=== PATIENT | female | born 1945 | race Caucasian/White ===

== ENCOUNTER 2016-12-09 17:37 | Emergency (ER) | payer MEDICARE ==
--- NOTE | 2016-12-09 18:56 | ED Physician Documentation ---
PD HPI FOCAL NEURO - Stated complaint Stated Complaint: NUMBNESS/TINGLING HAND/FEET - Chief complaint Chief Complaint: Neuro - History obtained from History obtained from: Patient - History of Present Illness Timing - onset: Other (For about 45 seconds at 4:45 PM today she developed left lip tingling, arm tingling in left and left leg tingling, all of which rapidly went away and were not associated with weakness or trouble with speech or headache.) Review of Systems Constitutional: denies: Fever, Chills Nose: denies: Rhinorrhea / runny nose, Congestion Throat: denies: Dental pain / toothache, Sore throat Cardiac: denies: Chest pain / pressure, Palpitations Respiratory: denies: Dyspnea PD PAST MEDICAL HISTORY - Present Medications Home Medications: Ambulatory Orders Medication Instructions Recorded Confirmed Atorvastatin Calcium 20 mg PO DAILY #60 tablet 12/09/16 - Allergies Allergies/Adverse Reactions: Allergies Allergy/AdvReac Type Severity Reaction Status Date / Time Penicillins Allergy Unknown Verified 12/09/16 17:47 typhoid vaccine Allergy Unknown Verified 12/09/16 17:47 PD ED PE NORMAL - Vitals Vital signs reviewed: Yes - General General: Alert and oriented X 3, No acute distress - HEENT HEENT: PERRL - Cardiac Cardiac: RRR, No murmur - Respiratory Respiratory: No respiratory distress, Clear bilaterally - Abdomen Abdomen: Non tender - Neuro Neuro: Alert and oriented X 3, Normal speech - Psych Psych: Normal mood, Normal affect NIHSS - Time Time: 18:45 - Level of Consciousness Level of consciousness: (0) Alert, Keenly responsive LOC Questions: (0) Answers both Q's correct LOC Commands: (0) Performs both correctly - Gaze Best Gaze: (0) Normal - Visual Visual: (0) No loss - Facial Palsy Facial Palsy: (0) Normal, symmetrical movement - Motor Arms (both separate) Motor Arm (right): (0) No drift Motor Arm (left): (0) No drift - Motor Legs (both separate) Motor Leg (right): (0) No drift Motor Leg (left): (0) No drift - Limb Ataxia Limb Ataxia: (0) Absent - Sensory Sensory: (0) Normal - Best Language Best Language: (0) No aphasia - Dysarthria Dysarthria: (0) Normal - Extinction and Inattention (formally neg Extinction and inattention: (0) No abnormality - Total Score/Results Total Score/Result: 0 Results - Vitals Vitals: Vital Signs - 24 hr 12/09/16 12/09/16 12/09/16 17:40 18:18 19:22 Temperature 36.4 C L 36.6 C Heart Rate 76 69 63 Respiratory 18 10 L 20 Rate Blood Pressure 185/84 H 159/87 H 175/72 H O2 Saturation 98 98 100 12/09/16 12/09/16 20:10 20:48 Temperature 36.3 C L Heart Rate 89 70 Respiratory 10 L 23 Rate Blood Pressure 151/70 H 157/68 H O2 Saturation 99 98 Oxygen O2 Source Room air - EKG (time done) 1901 Rate: Rate (enter#) (68) Rhythm: NSR [place]: Normal Intervals: Normal OR QRS: LVH Ischemia: Normal ST segments Computer interpretation: Agree with computer - Labs Labs: Laboratory Tests 12/09/16 12/09/16 19:12 19:12 WBC 12.1 H RBC 4.84 Hgb 14.4 Hct 43.1 MCV 89.0 MCH 29.7 MCHC 33.3 RDW 13.9 Plt Count 240 MPV 9.5 Neut # 8.4 H Lymph # 2.7 [place] # 0.7 Eos # 0.3 Baso # 0.1 Absolute Nucleated RBC 0.01 Nucleated RBCs 0.1 Sodium 137 Potassium 3.8 Chloride 102 Carbon Dioxide 26 Anion Gap 9.0 BUN 16 Creatinine 0.7 Estimated GFR (MDRD) 83 L Glucose 92 Calcium 9.2 Total Bilirubin 0.8 AST 21 ALT 21 Alkaline Phosphatase 62 Total Protein 7.9 Albumin 4.3 Globulin 3.6 Albumin/Globulin Ratio 1.2 Triglycerides 60 Cholesterol 226 H LDL Cholesterol, Calc 139 H VLDL Cholesterol 12 HDL Cholesterol 75 LDL/HDL Ratio 1.9 Cholesterol/HDL Ratio 3.0 Lipase 21 L - Rads (name of study) CT Head Radiology: EMP read contemporaneously (atrophy nad) carotid doppler Radiology: Prelim report reviewed (no sig stenosis) PD MEDICAL DECISION MAKING - ED course ED course: 71-year-old woman with TIA symptoms, normal exam now. Symptoms were very mild and fleeting, only 45 seconds she estimates. ABCD 2 score is 2 points. I recommended staying in the hospital which she refused. Workup was done and as shown, started on a statin and advised baby aspirin and primary care follow-up. Departure - Departure Disposition: 01 Home, Self Care Clinical Impression: Hypercholesterolemia TIA (transient ischemic attack) Qualifiers: Transient cerebral ischemia type: unspecified Qualified Code(s): G45.9 - Transient cerebral ischemic attack, unspecified Condition: Good Record reviewed to determine appropriate education?: Yes Instructions: ED Transient Ischemic Attack Follow-Up: [facility] [Provider Group] [facility] [Provider Group] [facility] [Provider Group] Prescriptions: Atorvastatin Calcium 20 mg PO DAILY #60 tablet Comments: It is imperative to follow-up with a primary care physician, several listed on this form. Return if worse or for recurrent symptoms. Take a baby aspirin every day, Your blood pressure was elevated today on check into the emergency department. This does not mean that you have hypertension, it is a common phenomenon to come to the emergency department and have elevated blood pressure. I recommend that she see her primary care physician within the week to have it rechecked when you are feeling better.
[2016-12-09 19:21] LABS: BASOPHILS # (AUTO) 0.1 10^3/uL (0.0-0.1); BASOPHILS % (AUTO) 0.6 %; EOSINOPHILS # (AUTO) 0.3 10^3/uL (0.0-0.7); EOSINOPHILS % (AUTO) 2.2 %; HCT - HEMATOCRIT 43.1 % (37.0-47.0); HGB - HEMOGLOBIN 14.4 g/dL (12.0-16.0); LYMPHOCYTES # (AUTO) 2.7 10^3/uL (1.5-3.5); LYMPHOCYTES % (AUTO) 22.4 %; MEAN CORPUSCULAR HEMOGLOBIN 29.7 pg (27.0-31.0); MEAN CORPUSCULAR HGB CONC 33.3 g/dL (32.0-36.0); MEAN PLATELET VOLUME 9.5 fL (7.9-10.8); MONOCYTES # (AUTO) 0.7 10^3/uL (0.0-1.0); MONOCYTES % (AUTO) 5.4 %; NEUTROPHILS # (AUTO) 8.4 10^3/uL (1.5-6.6); NEUTROPHILS % (AUTO) 69.4 %; NUCLEATED RED BLOOD CELLS AUTO 0.1 /100WBC; RED BLOOD COUNT 4.84 10^6/uL (4.20-5.40); RED CELL DISTRIBUTION WIDTH 13.9 % (12.0-15.0); UNCORRECTED WHITE BLOOD COUNT 12.1 x10^3/uL; WHITE BLOOD COUNT 12.1 x10^3/uL (4.8-10.8)
[2016-12-09 19:37] LABS: ALBUMIN/GLOBULIN RATIO 1.2 (1.0-2.2); BILIRUBIN,TOTAL 0.8 mg/dL (0.2-1.0); BUN - BLOOD UREA NITROGEN 16 mg/dL (6-20); CALCIUM 9.2 mg/dL (8.5-10.3); CARBON DIOXIDE - CO2 26 mmol/L (21-32); CHLORIDE 102 mmol/L (101-111); CHOLESTEROL 226 mg/dL; CREATININE 0.7 mg/dL (0.4-1.0); GFR - MDRD 83 (>89); GLUCOSE 92 mg/dL (70-100); HDL CHOLESTEROL 75 mg/dL; LDL/HDL RATIO 1.9 (<4.4); LIPASE 21 U/L (22-51); POTASSIUM 3.8 mmol/L (3.5-5.0); SODIUM 137 mmol/L (135-145); TOTAL PROTEIN 7.9 g/dL (6.7-8.2); TRIGLYCERIDES 60 mg/dL; VLDL CHOLESTEROL 12 mg/dL
--- NOTE | 2016-12-09 20:41 | Ultrasound Preliminary Report ---
Exam: US Carotid Doppler Complete IMPRESSION: Less than 50% stenosis of the bilateral internal carotid arteries. Validated velocity measurements with angiographic measurements and velocity criteria are extrapolated from diameter data as defined by the Society of Radiologists in Ultrasound Consensus Conference Radi ology 2003; 229;340-346. [facility] SITE ID: [id number]
--- NOTE | 2016-12-09 20:45 | CT Preliminary Report ---
Exam: CT Head W/O IMPRESSION: Generalized age-related cortical atrophic changes without evidence of acute intracranial abnormality. [facility] SITE ID: [id number]
--- NOTE | 2016-12-09 20:48 | CT Report ---
EXAM: CT HEAD EXAM DATE: 12/09/2016 08:29 PM. CLINICAL HISTORY: TIA. COMPARISON: None. TECHNIQUE: Multiaxial CT images were obtained from the foramen magnum to the vertex. IV contrast: Non e. Reformats: Coronal. In accordance with CT protocol optimization, one or more of the following dose reduction techniques w ere utilized for this exam: automated exposure control, adjustment of mA and/or KV based on patient s ize, or use of iterative reconstructive technique. FINDINGS: Parenchyma: No intraparenchymal hemorrhage. No evidence of mass, midline shift, or CT findings of acu te infarction. Silverio-white differentiation is distinct. Extraaxial Spaces: Normal for age. No subdural or epidural collections. Ventricles: The ventricles and cortical sulci are enlarged, consistent with age-related tissue loss. Sinuses: Imaged paranasal sinuses, orbits, and mastoids show no significant abnormality. Bones: Unremarkable. Other: Diffuse chronic microangiopathic white matter changes. IMPRESSION: Generalized age-related cortical atrophic changes without evidence of acute intracranial abnormality. [facility] Referring Provider Line: [phone] SITE ID: [id number]
--- NOTE | 2016-12-09 20:55 | Ultrasound Report ---
EXAM: CAROTID DOPPLER ULTRASOUND EXAM DATE: 12/09/2016 08:22 PM. CLINICAL HISTORY: Transient ischemic attack. Lip and hand numbness. COMPARISON: None. TECHNIQUE: Real-time sonographic vascular imaging was performed by the data technician through the caroti d arterial system with a linear transducer utilizing color-flow, Doppler flow and spectral analysis. Multiple charter representative static images were saved for review. FINDINGS: The bilateral carotid and vertebral arteries are patent with antegrade flow. There is bilat eral mixed calcified and noncalcified plaque without critical stenosis seen on grayscale or color Dop pler imaging. No significant velocity elevation of the internal carotid arteries. Right: RCCA Prox: PSV 114 cm/sec. RCCA Dist: PSV 71 cm/sec, EDV 13 cm/sec. RECA: PSV 62 cm/sec. R Bulb: PSV 50 cm/sec, EDV 10 cm/sec, ICA/CCA ratio 0.7 , degree of stenosis <50%, plaque estimate <50%. PRISCILLA Prox: PSV 43 cm/sec, EDV 9 cm/sec, ICA/CCA ratio 0.61 , degree of stenosis <50%, plaque estima te <50%. PRISCILLA Mid: PSV 67 cm/sec, EDV 18 cm/sec, ICA/CCA ratio 0.94 , degree of stenosis <50%, plaque estima te <50%. PRISCILLA Dist: PSV 83 cm/sec, EDV 21 cm/sec, ICA/CCA ratio 1.17 , degree of stenosis <50%, plaque estim ate <50%. RVA: PSV 59 cm/sec. RVA flow direction: Antegrade. Left: LCCA Prox: PSV 86 cm/sec. LCCA Dist: PSV 54 cm/sec, EDV 12 cm/sec. LECA: PSV 61 cm/sec. L Bulb: PSV 47 cm/sec, EDV 8 cm/sec, ICA/CCA ratio 0.87 , degree of stenosis <50%, plaque estimate <50%. LICA Prox: PSV 42 cm/sec, EDV 9 cm/sec, ICA/CCA ratio 0.78 , degree of stenosis <50%, plaque estima te <50%. LICA Mid: PSV 70 cm/sec, EDV 21 cm/sec, ICA/CCA ratio 1.3 , degree of stenosis <50%, plaque estimat e <50%. LICA Dist: PSV 70 cm/sec, EDV 22 cm/sec, ICA/CCA ratio 1.3 , degree of stenosis <50%, plaque estima te <50%. LVA: PSV 41 cm/sec. LVA flow direction: Antegrade. Other: None. IMPRESSION: Less than 50% stenosis of the bilateral internal carotid arteries. Validated velocity measurements with angiographic measurements and velocity criteria are extrapolated from diameter data as defined by the Society of Radiologists in Ultrasound Consensus Conference Radi ology 2003; 229;340-346. [facility] Referring Provider Line: [phone] SITE ID: [id number]
[2016-12-09 21:10] VITALS: BP 141/74
== END 2016-12-09 21:09 | disposition home or self-care (01) ==
LOC: ED 17:37
DX: G45.9 Transient cerebral ischemic attack, unspecified (principal); E78.00 Pure hypercholesterolemia, unspecified; I51.7 Cardiomegaly
CPT/HCPCS: 36415; 70450; 80053; 80061; 83690; 85025; 93005; 93880; 99284

== ENCOUNTER 2016-12-17 11:06 | Outpatient (CLI) | payer MEDICARE | END 2016-12-17 11:07 | disposition home or self-care (01) | LOC: DI 11:06 | PROVIDERS: ATTEND Family Medicine | DX: G45.9 Transient cerebral ischemic attack, unspecified (principal); E78.5 Hyperlipidemia, unspecified; I51.7 Cardiomegaly | CPT/HCPCS: 93306 ==

== ENCOUNTER 2017-01-13 09:41 | Outpatient (CLI) | payer MEDICARE ==
[2017-01-13 12:59] LABS: BILIRUBIN,TOTAL 0.8 mg/dL (0.2-1.0); BUN - BLOOD UREA NITROGEN 17 mg/dL (6-20); CALCIUM 9.1 mg/dL (8.5-10.3); CARBON DIOXIDE - CO2 27 mmol/L (21-32); CHLORIDE 103 mmol/L (101-111); CHOL/HDL RATIO 2.5 (<4.4); CHOLESTEROL 162 mg/dL; CREATININE 0.8 mg/dL (0.4-1.0); GFR - MDRD 71 (>89); GLUCOSE 116 mg/dL (70-100); HDL CHOLESTEROL 65 mg/dL; LDL/HDL RATIO 1.3 (<4.4); SODIUM 137 mmol/L (135-145); TOTAL PROTEIN 7.8 g/dL (6.7-8.2); TRIGLYCERIDES 69 mg/dL; VLDL CHOLESTEROL 14 mg/dL
== END 2017-01-13 09:42 | disposition home or self-care (01) ==
LOC: LAB.WCP 09:41
PROVIDERS: ATTEND Family Medicine
DX: E78.5 Hyperlipidemia, unspecified (principal)
CPT/HCPCS: 36415; 80053; 80061

== ENCOUNTER 2017-01-23 11:40 | Outpatient (CLI) | payer MEDICARE ==
[2017-01-23 20:06] LABS: HEMOGLOBIN A1C 0.59 g/dL
== END 2017-01-23 11:41 | disposition home or self-care (01) ==
LOC: LAB.WCP 11:40
PROVIDERS: ATTEND Family Medicine
DX: R73.01 Impaired fasting glucose (principal)
CPT/HCPCS: 36415; 83036

== ENCOUNTER 2017-03-19 13:53 | Emergency (ER) | payer MEDICARE ==
[2017-03-19] MEDS ORDERED: TETANUS/DIPHTHERIA/PERTUSSIS 0.5 ML SYRINGE IM ONE ×2 (14:10→14:18)
--- NOTE | 2017-03-19 14:32 | ED Physician Documentation ---
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 - Present Medications Home Medications: Ambulatory Orders Medication Instructions Recorded Confirmed Atorvastatin Calcium 20 mg PO DAILY #60 tablet 12/09/16 03/19/17 - Allergies Allergies/Adverse Reactions: Allergies Allergy/AdvReac Type Severity Reaction Status Date / Time Penicillins Allergy Unknown Verified 03/19/17 13:59 typhoid vaccine Allergy Unknown Verified 03/19/17 13:59 - Social History Does the pt smoke?: No Smoking Status: Never smoker Does the pt drink ETOH?: Yes Does the pt have substance abuse?: No - Immunizations Immunizations are current?: No - POLST Patient has POLST: No PD ED PE NORMAL - Vitals Vital signs reviewed: Yes - Derm Derm: Other (1 cm lac doral R thumb IP, tendon fxn intact, MSV intact, explored to base, nearly full thickness but does not dehsic) Results - Vitals Vitals: Vital Signs - 24 hr 03/19/17 03/19/17 13:56 14:00 Temperature 36.3 C L Heart Rate 89 Respiratory 18 Rate Blood Pressure 175/85 H O2 Saturation 100 Oxygen O2 Source Room air Departure - Departure Disposition: 01 Home, Self Care Clinical Impression: Laceration Condition: Good Instructions: ED Laceration Ext Skin Glue Follow-Up: Cordelia Gomez MD [Primary Care Provider] - Comments: Wear the splint to keep your thumb from bending for 5-7 days May wash the hand but do not apply any ointment or lotion because that will dissolve the glue The glue will gradually flake off over about 10 days Return for signs of infection - redness swelling pain drainage Also you got a TDaP immunization today - please let your PMD know to update your records
[2017-03-19 14:50] VITALS: BP 176/95
== END 2017-03-19 14:46 | disposition home or self-care (01) ==
LOC: ED 13:53
DX: S61.011A Laceration without foreign body of right thumb without damage to nail, initial encounter (principal); W26.8XXA Contact with other sharp object(s), not elsewhere classified, initial encounter; E78.00 Pure hypercholesterolemia, unspecified; Z86.73 Personal history of transient ischemic attack (TIA), and cerebral infarction without residual deficits; Z23 Encounter for immunization
CPT/HCPCS: 12001; 90471; 99283

== ENCOUNTER 2017-05-28 07:03 | Day surgery (SDC) | payer MEDICARE ==
[~2017-05-28 07:03] MED LIST: CYCLOPENTOLATE 1% OPHTH DROPS 2 ML ONE; KETOROLAC 0.45% OPHTH DROPS ONE; PHENYLEPHRINE 2.5% OPHTH 2 ML DROPS ONE; PROPARACAINE 0.5% OPHTH DROPS 15 ML ONE
[2017-05-28] MEDS ORDERED: TIMOLOL 0.5% OPHTH DROPS ONE (07:17)
[2017-05-28] MEDS ORDERED: BRIMONIDINE 0.2% OPHTH DROPS 5 ML ONE (07:17)
[2017-05-28] MEDS ORDERED: LACTATED RINGERS 500 ML IV ONE (07:25)
[2017-05-28] MEDS ORDERED: KETOROLAC 0.45% OPHTH DROPS RIGHTEYE ONE (07:25)
[2017-05-28] MEDS ORDERED: CYCLOPENTOLATE 1% OPHTH DROPS 2 ML RIGHTEYE ONE (07:25)
[2017-05-28] MEDS ORDERED: PHENYLEPHRINE 2.5% OPHTH 2 ML DROPS RIGHTEYE ONE (07:25)
[2017-05-28] MEDS ORDERED: PROPARACAINE 0.5% OPHTH DROPS 15 ML RIGHTEYE ONE ×2 (07:25→08:19)
[2017-05-28] MEDS ORDERED: MIDAZOLAM 2 MG/2 ML VIAL IVP ONE (08:11)
[2017-05-28] MEDS ORDERED: EPINEPHrine 1 MG/ML AMP IVP ONE (08:17)
[2017-05-28] MEDS ORDERED: BRIMONIDINE 0.2% OPHTH DROPS 5 ML OPTH ONE (08:17)
[2017-05-28] MEDS ORDERED: TRIAMCIN/MOXIFLOX/VANCO 1 ML VIAL IO ONE (08:18)
[2017-05-28] MEDS ORDERED: BSS/LIDOCAINE/EPINEPHRINE 1 ML SYRINGE IO ONE (08:18)
[2017-05-28] MEDS ORDERED: TIMOLOL 0.5% OPHTH DROPS OPTH ONE (08:18)
[2017-05-28] MEDS ORDERED: CHONDR SULF/HYALURONATE SYRINGE IO ONE (08:18)
[2017-05-28 08:40] VITALS: BP 137/58
--- NOTE | 2017-05-28 08:59 | OPERATIVE REPORT ---
DATE OF SERVICE: 05/28/2017 Physician: Gray Alvarado MD PREOPERATIVE DIAGNOSIS: Visually significant cataract, right eye. This was her first cataract surgery. POSTOPERATIVE DIAGNOSIS: Visually significant cataract, right eye. This was her first cataract surgery. PROCEDURE: Phacoemulsification with posterior chamber intraocular lens implant , right eye. SURGEON: Gray Alvarado MD ANESTHESIA: Monitored anesthesia care. COMPLICATIONS: None. OPERATIVE INDICATIONS: This is a 72-year-old woman with progressive vision loss in the right eye due to 2+ nuclear sclerotic, 2+ cortical and 2+ posterior subcapsular cataract. Best corrected visual acuity was 20/50 with glare to count fingers in the right eye. INDICATIONS FOR SURGERY: Overall decrease in vision, difficulty seeing words, closed captions or game scores on TV, difficulty seeing street signs, difficulty driving in low light or at night, difficulty driving at night because of headlights from other vehicles and /or street lights and difficulty with glare or bright lights in any situation. She was consented at length concerning the risks and benefits of cataract surgery, after which she expressed a desire to proceed with surgery. OPERATIVE PROCEDURE: The patient was taken to OR #2 and placed under monitored anesthesia care. A surgical timeout was conducted confirming correct patient, correct procedure, and correct surgical site. She was given topical anesthesia and then prepped and draped in the usual sterile fashion. The eye was entered at the 12 and 9 o'clock positions. Intracameral Shugarcaine was injected into the anterior chamber, followed by Viscoat. A continuous-tear curvilinear capsulorrhexis was performed. The nucleus was hydrodissected and phacoemulsified. The cortex was evacuated using automated infusion and aspiration (I&A). Provisc was injected in the capsular bag, and a 24.0 diopter intraocular lens was inserted in the bag. Approximately 0.8 mL of a mixture of triamcinolone, moxifloxacin and vancomycin was injected subconjunctivally in the superior quadrant for infection and inflammation prophylaxis. I&A was used to evacuate the viscoelastic material. The eye was inflated to physiologic pressure using balanced salt solution and found to be watertight. The patient was taken from the operating room in good condition, given postoperative instructions. TD: 05/28/2017 08:58 [facility]ain
== END 2017-05-28 07:04 | disposition home or self-care (01) ==
LOC: SDS 07:03
PROVIDERS: ATTEND Ophthalmology
PROC: 08RJ3JZ Replacement of Right Lens with Synthetic Substitute, Percutaneous Approach (ICD-10-PCS; principal; 2017-05-28 08:00)
DX: H25.811 Combined forms of age-related cataract, right eye (principal); Z79.82 Long term (current) use of aspirin
CPT/HCPCS: 66984; A9270; J3490; V2632

== ENCOUNTER 2017-06-25 07:22 | Day surgery (SDC) | payer MEDICARE ==
[~2017-06-25 07:22] MED LIST changes: +BRIMONIDINE 0.2% OPHTH DROPS 5 ML ONE; -CYCLOPENTOLATE 1% OPHTH DROPS 2 ML ONE; -KETOROLAC 0.45% OPHTH DROPS ONE; -PHENYLEPHRINE 2.5% OPHTH 2 ML DROPS ONE; -PROPARACAINE 0.5% OPHTH DROPS 15 ML ONE; +TIMOLOL 0.5% OPHTH DROPS ONE
[2017-06-25] MEDS ORDERED: KETOROLAC 0.45% OPHTH DROPS ONE (07:37)
[2017-06-25] MEDS ORDERED: PHENYLEPHRINE 2.5% OPHTH 2 ML DROPS ONE (07:37)
[2017-06-25] MEDS ORDERED: CYCLOPENTOLATE 1% OPHTH DROPS 2 ML ONE (07:38)
[2017-06-25] MEDS ORDERED: PROPARACAINE 0.5% OPHTH DROPS 15 ML ONE (07:38)
[2017-06-25] MEDS ORDERED: CYCLOPENTOLATE 1% OPHTH DROPS 2 ML LEFTEYE ONE (07:48)
[2017-06-25] MEDS ORDERED: PHENYLEPHRINE 2.5% OPHTH 2 ML DROPS LEFTEYE ONE (07:48)
[2017-06-25] MEDS ORDERED: KETOROLAC 0.45% OPHTH DROPS LEFTEYE ONE (07:48)
[2017-06-25] MEDS ORDERED: PROPARACAINE 0.5% OPHTH DROPS 15 ML LEFTEYE ONE ×2 (07:48→08:41)
[2017-06-25] MEDS ORDERED: LACTATED RINGERS 500 ML IV ONE (07:59)
[2017-06-25] MEDS ORDERED: CHONDR SULF/HYALURONATE SYRINGE IO ONE (08:40)
[2017-06-25] MEDS ORDERED: MIDAZOLAM 2 MG/2 ML VIAL IVP ONE (08:40)
[2017-06-25] MEDS ORDERED: BRIMONIDINE 0.2% OPHTH DROPS 5 ML OPTH ONE (08:40)
[2017-06-25] MEDS ORDERED: EPINEPHrine 1 MG/ML AMP IVP ONE (08:40)
[2017-06-25] MEDS ORDERED: BSS/LIDOCAINE/EPINEPHRINE 1 ML SYRINGE IO ONE ×2 (08:41)
[2017-06-25] MEDS ORDERED: TRIAMCIN/MOXIFLOX/VANCO 1 ML VIAL IO ONE ×2 (08:41)
[2017-06-25] MEDS ORDERED: TIMOLOL 0.5% OPHTH DROPS OPTH ONE (08:41)
[2017-06-25 09:11] VITALS: BP 152/69
--- NOTE | 2017-06-25 09:19 | OPERATIVE REPORT ---
DATE OF SERVICE: 06/25/2017 Physician: Gray Alvarado MD PREOPERATIVE DIAGNOSIS: Visually significant cataract, left eye. Cataract surgery was performed on the right eye on 05/28/2017. POSTOPERATIVE DIAGNOSIS: Visually significant cataract, left eye. Cataract surgery was performed on the right eye on 05/28/2017. NAME OF PROCEDURE: Phacoemulsification with posterior chamber intraocular lens implant, left eye. SURGEON: Gray Alvarado MD ANESTHESIA: Monitored anesthesia care. COMPLICATIONS: None. OPERATIVE INDICATIONS: This is a 72-year-old woman with progressive vision loss in the left eye due to 2+ nuclear sclerotic, 2+ cortical and 1+ posterior subcapsular cataract with. Best corrected visual acuity was 20/40 with glare to count fingers in the left eye. Indications for surgery were difficulty seeing words on a computer screen, difficulty reading; difficulty seeing words, closed captions or game scores on TV; difficulty driving in low light or at night, difficulty driving at night because of headlights from other vehicles and/or street lights, and difficulty with glare or bright lights in any situation. She was consented at length concerning the risks and benefits of cataract surgery, after which she expressed a desire to proceed with surgery. OPERATIVE PROCEDURE: The patient was taken into OR #3 and placed under monitored anesthesia care. A surgical timeout was conducted confirming correct patient, correct procedure, and correct surgical site. She was given topical anesthesia, and prepped and draped in the usual sterile fashion. The eye was entered at the 6 and 3 o'clock positions. Intracameral Shugarcaine was injected into the anterior chamber, followed by Viscoat. A continuous-tear curvilinear capsulorrhexis was performed. The nucleus was hydrodissected and phacoemulsified. The cortex was evacuated using automated infusion aspiration. Provisc was injected in the capsular bag, and a 23.5 diopter intraocular lens was inserted in the bag. Approximately 0.7 mL of a mixture of triamcinolone and moxifloxacin was injected subconjunctivally in the superior quadrant for infection and inflammation prophylaxis. I and A was used to evacuate the viscoelastic material. The eye was inflated to physiologic pressure using a balanced salt solution and found to be watertight. The patient was taken from the operating room in good condition and given postoperative instructions. TD: 06/25/2017 09:17
== END 2017-06-25 07:23 | disposition home or self-care (01) ==
LOC: SDS 07:22
PROVIDERS: ATTEND Ophthalmology
PROC: 08RK3JZ Replacement of Left Lens with Synthetic Substitute, Percutaneous Approach (ICD-10-PCS; principal; 2017-06-25 08:30)
DX: H25.812 Combined forms of age-related cataract, left eye (principal); Z79.82 Long term (current) use of aspirin; Z86.73 Personal history of transient ischemic attack (TIA), and cerebral infarction without residual deficits
CPT/HCPCS: 66984; A9270; J3490; V2632

== ENCOUNTER 2017-11-06 13:02 | Outpatient (CLI) | payer MEDICARE ==
[2017-11-06 19:29] LABS: HB2 TOTAL 15.5 g/dL; HEMOGLOBIN A1C 0.76 g/dL; HEMOGLOBIN A1C % 6.6 % (4.6-6.2)
[2017-11-06 19:38] LABS: ALBUMIN 3.8 g/dL (3.2-5.5); ALBUMIN/GLOBULIN RATIO 0.9 (1.0-2.2); ALKALINE PHOSPHATASE 78 IU/L (42-121); ALT ALANINE AMINOTRANSFERASE 19 IU/L (10-60); AST ASPARTATE AMINOTRANSFERASE 19 IU/L (10-42); BILIRUBIN,TOTAL 0.9 mg/dL (0.2-1.0); BUN - BLOOD UREA NITROGEN 17 mg/dL (6-20); CALCIUM 8.9 mg/dL (8.5-10.3); CARBON DIOXIDE - CO2 29 mmol/L (21-32); CHLORIDE 100 mmol/L (101-111); CHOL/HDL RATIO 2.2 (<4.4); CHOLESTEROL 156 mg/dL; CREATININE 0.6 mg/dL (0.4-1.0); GFR - MDRD 99 (>89); GLUCOSE 99 mg/dL (70-100); HDL CHOLESTEROL 71 mg/dL; LDL CHOLESTEROL,CALCULATED 71 mg/dL; SODIUM 136 mmol/L (135-145); TOTAL PROTEIN 7.9 g/dL (6.7-8.2); VLDL CHOLESTEROL 14 mg/dL
== END 2017-11-06 13:03 | disposition home or self-care (01) ==
LOC: LAB.WCP 13:02
PROVIDERS: ATTEND Family Medicine
DX: E78.5 Hyperlipidemia, unspecified (principal); R73.01 Impaired fasting glucose
CPT/HCPCS: 36415; 80053; 80061; 83036; 83721

== ENCOUNTER 2018-01-28 10:04 | Outpatient (CLI) | payer MEDICARE ==
[2018-01-28 13:00] LABS: ALBUMIN 3.9 g/dL (3.2-5.5); ALBUMIN/GLOBULIN RATIO 1.1 (1.0-2.2); ALKALINE PHOSPHATASE 89 IU/L (42-121); ALT ALANINE AMINOTRANSFERASE 16 IU/L (10-60); AST ASPARTATE AMINOTRANSFERASE 18 IU/L (10-42); BILIRUBIN,TOTAL 0.7 mg/dL (0.2-1.0); BUN - BLOOD UREA NITROGEN 20 mg/dL (6-20); CALCIUM 9.2 mg/dL (8.5-10.3); CARBON DIOXIDE - CO2 28 mmol/L (21-32); CHLORIDE 101 mmol/L (101-111); CHOL/HDL RATIO 2.1 (<4.4); CHOLESTEROL 135 mg/dL; CREATININE 0.9 mg/dL (0.4-1.0); GFR - MDRD 62 (>89); GLUCOSE 123 mg/dL (70-100); HDL CHOLESTEROL 64 mg/dL; LDL CHOLESTEROL,CALCULATED 57 mg/dL; LDL/HDL RATIO 0.9 (<4.4); SODIUM 138 mmol/L (135-145); TOTAL PROTEIN 7.3 g/dL (6.7-8.2); VLDL CHOLESTEROL 14 mg/dL
[2018-01-28 13:10] LABS: HB2 TOTAL 14.8 g/dL; HEMOGLOBIN A1C 0.59 g/dL; HEMOGLOBIN A1C % 5.8 % (4.6-6.2)
== END 2018-01-28 10:05 | disposition home or self-care (01) ==
LOC: LAB.WCP 10:04
PROVIDERS: ATTEND Family Medicine
DX: E78.5 Hyperlipidemia, unspecified (principal); E11.9 Type 2 diabetes mellitus without complications
CPT/HCPCS: 36415; 80053; 80061; 83036; 83721

== ENCOUNTER 2018-10-04 15:44 | Outpatient (CLI) | payer MEDICARE ==
--- NOTE | 2018-10-04 16:11 | XRAY Report ---
Reason: COUGH Procedure Date: 10/04/2018 Accession Number: [id number] / [id number] Procedure: WCP - Chest 2 View X-Ray CPT Code: 72644 FULL RESULT: EXAM: CHEST RADIOGRAPHY EXAM DATE: 10/04/2018 03:54 PM. CLINICAL HISTORY: COUGH. COMPARISON: None. TECHNIQUE: 2 views. FINDINGS: Lungs/Pleura: No focal opacities evident. No pleural effusion. No pneumothorax. Normal volumes. Mediastinum: Heart and mediastinal contours are unremarkable. Other: None. IMPRESSION: Normal 2-view chest radiography. [facility]
== END 2018-10-04 15:45 | disposition home or self-care (01) ==
LOC: DI.WCP 15:44
PROVIDERS: ATTEND Family Medicine
DX: R05 Cough (principal)
CPT/HCPCS: 71046

== ENCOUNTER 2018-11-25 15:47 | Outpatient (CLI) | payer MEDICARE ==
[2018-11-25 12:48] LABS: BASOPHILS # (AUTO) 0.1 10^3/uL (0.0-0.1); BASOPHILS % (AUTO) 0.8 %; EOSINOPHILS # (AUTO) 0.4 10^3/uL (0.0-0.7); EOSINOPHILS % (AUTO) 4.2 %; HGB - HEMOGLOBIN 13.7 g/dL (12.0-16.0); LYMPHOCYTES # (AUTO) 2.5 10^3/uL (1.5-3.5); LYMPHOCYTES % (AUTO) 29.3 %; MEAN CORPUSCULAR HEMOGLOBIN 29.5 pg (27.0-31.0); MEAN CORPUSCULAR HGB CONC 31.6 g/dL (32.0-36.0); MEAN CORPUSCULAR VOLUME 93.3 fL (81.0-99.0); MEAN PLATELET VOLUME 11.8 fL (7.9-10.8); MONOCYTES # (AUTO) 0.6 10^3/uL (0.0-1.0); MONOCYTES % (AUTO) 7.3 %; NEUTROPHILS # (AUTO) 4.9 10^3/uL (1.5-6.6); PLT - PLATELET COUNT 270 10^3/uL (130-450); RED BLOOD COUNT 4.64 10^6/uL (4.20-5.40); RED CELL DISTRIBUTION WIDTH 13.5 % (12.0-15.0); WHITE BLOOD COUNT 8.4 x10^3/uL (4.8-10.8)
[2018-11-25 13:23] LABS: HB2 TOTAL 14.3 g/dL; HEMOGLOBIN A1C 0.63 g/dL; HEMOGLOBIN A1C % 6.2 % (4.6-6.2)
[2018-11-25 13:30] LABS: ALBUMIN 3.8 g/dL (3.2-5.5); ALKALINE PHOSPHATASE 87 IU/L (42-121); ALT ALANINE AMINOTRANSFERASE 25 IU/L (10-60); AST ASPARTATE AMINOTRANSFERASE 24 IU/L (10-42); BILIRUBIN,TOTAL 1.1 mg/dL (0.2-1.0); BUN - BLOOD UREA NITROGEN 17 mg/dL (6-20); CALCIUM 9.4 mg/dL (8.5-10.3); CARBON DIOXIDE - CO2 25 mmol/L (21-32); CHLORIDE 106 mmol/L (101-111); CHOL/HDL RATIO 2.5 (<4.4); CHOLESTEROL 162 mg/dL; CREATININE 0.8 mg/dL (0.4-1.0); GFR - MDRD 71 (>89); GLUCOSE 137 mg/dL (70-100); HDL CHOLESTEROL 65 mg/dL; LDL CHOLESTEROL,CALCULATED 83 mg/dL; LDL/HDL RATIO 1.3 (<4.4); SODIUM 141 mmol/L (135-145); TOTAL PROTEIN 7.6 g/dL (6.7-8.2); VLDL CHOLESTEROL 14 mg/dL
== END 2018-11-25 23:59 | disposition home or self-care (01) ==
LOC: LAB.WCP 15:47
PROVIDERS: ATTEND Family Medicine
DX: I10 Essential (primary) hypertension (principal); E11.9 Type 2 diabetes mellitus without complications; E78.5 Hyperlipidemia, unspecified
CPT/HCPCS: 36415; 80053; 80061; 83036; 83721; 85025

== ENCOUNTER 2019-02-24 10:15 | Outpatient (CLI) | payer MEDICARE ==
[2019-02-24 12:27] LABS: BASOPHILS % (AUTO) 0.5 %; EOSINOPHILS # (AUTO) 0.3 10^3/uL (0.0-0.7); EOSINOPHILS % (AUTO) 3.7 %; HGB - HEMOGLOBIN 13.1 g/dL (12.0-16.0); LYMPHOCYTES # (AUTO) 2.2 10^3/uL (1.5-3.5); LYMPHOCYTES % (AUTO) 25.2 %; MEAN CORPUSCULAR HEMOGLOBIN 28.6 pg (27.0-31.0); MEAN CORPUSCULAR HGB CONC 31.2 g/dL (32.0-36.0); MEAN CORPUSCULAR VOLUME 91.7 fL (81.0-99.0); MONOCYTES # (AUTO) 0.5 10^3/uL (0.0-1.0); NEUTROPHILS # (AUTO) 5.6 10^3/uL (1.5-6.6); NEUTROPHILS % (AUTO) 64.3 %; PLT - PLATELET COUNT 284 10^3/uL (130-450); RED BLOOD COUNT 4.58 10^6/uL (4.20-5.40); RED CELL DISTRIBUTION WIDTH 13.1 % (12.0-15.0); WHITE BLOOD COUNT 8.7 x10^3/uL (4.8-10.8)
[2019-02-24 13:00] LABS: ALBUMIN 3.9 g/dL (3.2-5.5); ALKALINE PHOSPHATASE 80 IU/L (42-121); ALT ALANINE AMINOTRANSFERASE 16 IU/L (10-60); AST ASPARTATE AMINOTRANSFERASE 17 IU/L (10-42); BILIRUBIN,TOTAL 0.7 mg/dL (0.2-1.0); BUN - BLOOD UREA NITROGEN 21 mg/dL (6-20); CALCIUM 8.9 mg/dL (8.5-10.3); CARBON DIOXIDE - CO2 29 mmol/L (21-32); CHLORIDE 104 mmol/L (101-111); CHOL/HDL RATIO 2.5 (<4.4); CHOLESTEROL 171 mg/dL; CREATININE 0.7 mg/dL (0.4-1.0); GFR - MDRD 82 (>89); GLUCOSE 134 mg/dL (70-100); HB2 TOTAL 13.9 g/dL; HDL CHOLESTEROL 69 mg/dL; HEMOGLOBIN A1C 0.6 g/dL; HEMOGLOBIN A1C % 6.1 % (4.6-6.2); LDL CHOLESTEROL,CALCULATED 85 mg/dL; LDL/HDL RATIO 1.2 (<4.4); SODIUM 140 mmol/L (135-145); TOTAL PROTEIN 7.7 g/dL (6.7-8.2); VLDL CHOLESTEROL 17 mg/dL
== END 2019-02-24 23:59 | disposition home or self-care (01) ==
LOC: LAB.WCP 10:15
PROVIDERS: ATTEND Family Medicine
DX: I10 Essential (primary) hypertension (principal); E78.5 Hyperlipidemia, unspecified; E11.9 Type 2 diabetes mellitus without complications
CPT/HCPCS: 36415; 80053; 80061; 83036; 83721; 85025

== ENCOUNTER 2019-03-17 12:47 | Outpatient (CLI) | payer MEDICARE, MEDICAID ==
--- NOTE | 2019-03-18 08:58 | XRAY Report ---
Reason: cough Procedure Date: 03/17/2019 Accession Number: [id number] / [id number] Procedure: XRN - Chest 2 View X-Ray CPT Code: 53074 Final Report FULL RESULT: EXAM: CHEST RADIOGRAPHY EXAM DATE: 03/17/2019 01:26 PM. CLINICAL HISTORY: Productive cough for 2 months. COMPARISON: CHEST 2 VIEW 10/04/2018 3:39 PM. TECHNIQUE: 2 views. FINDINGS: Lungs/Pleura: No focal opacities evident. No peribronchial cuffing or interstitial abnormality. No pleural effusion. No pneumothorax. Normal volumes. Mediastinum: Heart and mediastinal contours are unremarkable. Minimal aortic arch calcification. Other: Mild multilevel mid to lower thoracic degenerative disk disease. IMPRESSION: Negative chest. Lungs are clear. [facility]
== END 2019-03-17 12:48 | disposition home or self-care (01) ==
LOC: DI.N 12:47
PROVIDERS: ATTEND Family Medicine
DX: R05 Cough (principal)
CPT/HCPCS: 71046

== ENCOUNTER 2019-04-08 08:34 | Emergency (ER) | payer MEDICARE, MEDICAID ==
[2019-04-08] MEDS ORDERED: IPRATROPIUM/ALBUTEROL 3 ML NEB INH STA (09:22)
[2019-04-08] MEDS ORDERED: CHERRY SYRUP 10 ML UDC PO ONE (09:22)
[2019-04-08] MEDS ORDERED: DEXAMETHASONE 10 MG/ML VIAL PO STA (09:22)
--- NOTE | 2019-04-08 09:32 | ED Physician Documentation ---
History of Present Illness - Stated complaint Stated Complaint: SOA - Chief complaint Chief Complaint: Resp - History obtained from History obtained from: Patient - History of Present Illness Timing: Other (4 months) Pain level max: 0 Pain level now: 0 - Additonal information Additional information: 74-year-old female states that she has had a dry cough for the past 4 months or so. She states that she has had wheezing and difficulty walking. She states she becomes short of breath easily. Her doctor prescribed an inhaler, but she thinks that it makes her cough more. No fevers. She states she had an allergic reaction to prednisone, had taken this several times without issue, but last time she states that her face swelled approximately 4 hours after taking it. 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 - Present Medications Home Medications: Ambulatory Orders Medication Instructions Recorded Confirmed Atorvastatin Calcium 20 mg PO DAILY #60 tablet 12/09/16 03/19/17 Aspirin 81 mg PO 05/27/17 Fluticasone/Salmeterol [Advair 1 each IH BID #60 blst.w.dev 04/08/19 250-50 Diskus] - Allergies Allergies/Adverse Reactions: Allergies Allergy/AdvReac Type Severity Reaction Status Date / Time Penicillins Allergy Rash Verified 05/27/17 12:24 prednisone Allergy Edema Verified 04/08/19 08:48 simvastatin Allergy Unknown Verified 04/08/19 08:50 typhoid vaccine Allergy Unknown Verified 03/19/17 13:59 - Social History Does the pt smoke?: No Smoking Status: Never smoker Does the pt drink ETOH?: Yes Does the pt have substance abuse?: No - Immunizations Immunizations are current?: No - POLST Patient has POLST: No PD ED PE NORMAL - Vitals Vital signs reviewed: Yes - General General: Alert and oriented X 3, No acute distress, Well developed/nourished - HEENT HEENT: Ears normal, Moist mucous membranes, Pharynx benign - Neck Neck: Supple, no meningeal sign - Cardiac Cardiac: RRR, Strong equal pulses - Respiratory Respiratory: No respiratory distress, Other (Audible wheezing) - Abdomen Abdomen: Soft, Non tender, Non distended - Derm Derm: Warm and dry - Extremities Extremities: No edema, No calf tenderness / cord - Neuro Neuro: Alert and oriented X 3 - Psych Psych: Normal mood, Normal affect Results - Vitals Vitals: Vital Signs - 24 hr 04/08/19 04/08/19 04/08/19 08:45 09:15 09:55 Temperature 36.8 C Heart Rate 111 H 95 99 Respiratory 18 18 20 Rate Blood Pressure 177/86 H 164/81 H O2 Saturation 98 97 04/08/19 04/08/19 04/08/19 11:07 11:55 12:26 Temperature 36.4 C L 36.4 C L Heart Rate 92 88 88 Respiratory 20 16 16 Rate Blood Pressure 174/82 H 174/82 H O2 Saturation 95 95 04/08/19 12:27 Temperature 36.4 C L Heart Rate 88 Respiratory 16 Rate Blood Pressure 174/82 H O2 Saturation 95 Oxygen O2 Source Room air PD MEDICAL DECISION MAKING - ED course Complexity details: reviewed old records, re-evaluated patient, considered differential, d/w patient, d/w family ED course: Patient improved significantly in the emergency department after dexamethasone and 2 breathing treatments. No longer audibly wheezing. Able to ambulate well. We will place her on Advair for home in addition to her albuterol. She was given a spacer and teaching for this as well. She is well-appearing, nontoxic. No evidence of pneumonia. No hypoxia. Patient counseled regarding signs and symptoms for which I believe and urgent re-evaluation would be necessary. Patient with good understanding of and agreement to plan and is comfortable going home at this time This document was made in part using voice recognition software. While efforts are made to proofread this document, sound alike and grammatical errors may occur. Departure - Departure Disposition: 01 Home, Self Care Clinical Impression: Wheezing Condition: Good Instructions: ED Reactive Airway Disease Follow-Up: Hilario Wilks MD [Primary Care Provider] - Within 1 week Prescriptions: Fluticasone/Salmeterol [Advair 250-50 Diskus] 1 each IH BID #60 blst.w.dev Comments: Continue your albuterol at home. Return if you worsen. Follow-up with your doctor for further care. You may benefit from a referral to a ribbon blockmaker. Discuss this with your doctor. Discharge Date/Time: 04/08/19 12:27
[2019-04-08] MEDS ORDERED: ALBUTEROL NEB 2.5 MG/3 ML INH STA (10:14)
[2019-04-08] MEDS ORDERED: IBUPROFEN 800 MG TABLET PO STA (11:06)
[2019-04-08 11:56] VITALS: BP 174/82
== END 2019-04-08 12:27 | disposition home or self-care (01) ==
LOC: ED 08:34
DX: R06.2 Wheezing (principal)
CPT/HCPCS: 94640; 94664; 99284; A9270

== ENCOUNTER 2019-06-24 15:53 | Outpatient (CLI) | payer MEDICARE ==
--- NOTE | 2019-06-28 11:11 | DEXA Report ---
Reason: MENOPAUSAL Procedure Date: 06/24/2019 Accession Number: [id number] / [id number] Procedure: DEX - Dexa Spine and/or Hip CPT Code: Final Report FULL RESULT: EXAM: Dexa Spine and/or Hip DATE: 06/24/2019 4:13 PM CLINICAL HISTORY: MENOPAUSAL TECHNIQUE: Dual energy x-ray absorptiometry (DXA) was performed on a [id number] System. Regions measured are the AP Spine, femoral neck, and if needed forearm. COMPARISON: None. In accordance with the International Society for Clinical Densitometry (ISCD) guidelines, data from previous exams may be reanalyzed using current recommendations and techniques. This is done to allow a more accurate basis for comparison with the current study. FINDINGS: The data for the lumbar spine is as follows: BMD (g/cm/cm) T-SCORE Z-SCORE REGION L1 1.274 1.2 1.8 L2 1.357 1.3 1.9 L3 1.418 1.8 2.4 L4 1.388 1.6 2.1 TOTAL 1.362 1.5 2.1 NOTE: All evaluable vertebrae are used for classification The data for the hip is as follows: BMD (g/cm/cm) T-SCORE Z-SCORE REGION Neck 0.857 -1.3 -0.2 TOTAL 1.026 0.1 0.9 NOTE: The femoral neck or total proximal femur, whichever is lowest, is used for classification. IMPRESSION: THE WHO CLASSIFICATION BASED ON THE INTERNATIONAL REFERENCE STANDARD IS OSTEOPENIA. THE FRACTURE RISK IS INCREASED. RECOMMENDATION: Patients with diagnosis of osteoporosis or osteopenia should have regular bone mineral density assessment. For those eligible for Medicare, routine testing is allowed once every 2 years. Testing frequency can be increased for patients who have rapidly progressing disease or for those who are receiving medical therapy to restore bone mass. COMMENT: World Health Organization (WHO) definitions for osteoporosis and osteopenia: NORMAL BMD: T-score at -1.0 or higher, fracture risk is low OSTEOPENIA BMD: T-score between -1.0 and -2.5, fracture risk is increased. OSTEOPOROSIS BMD: T-score at -2.5 or lower, fracture risk is high. National Osteoporosis Foundation recommends: 1. Obtain adequate dietary calcium (at least 1200 mg per day) and vitamin D (400-800 international units per day). 2. Participate, as appropriate, in regular weightbearing and muscle-strengthening exercise. 3. Avoid tobacco use and reduce alcohol and caffeine intake. 4. For more detailed information see the website at www.NOF.org.
== END 2019-06-24 15:54 | disposition home or self-care (01) ==
LOC: DI 15:53
PROVIDERS: ATTEND Family Medicine
DX: Z13.820 Encounter for screening for osteoporosis (principal); M85.88 Other specified disorders of bone density and structure, other site; Z78.0 Asymptomatic menopausal state
CPT/HCPCS: 77080

== ENCOUNTER 2019-11-09 14:01 | Outpatient (CLI) | payer MEDICARE ==
--- NOTE | 2019-11-10 11:39 | Mammography Report ---
BILATERAL DIGITAL SCREENING MAMMOGRAM 3D/2D: 11/09/2019 CLINICAL: Baseline exam. Routine screening. No prior exams were available for comparison. There are scattered fibroglandular elements in both br easts. No significant masses, calcifications, or other findings are seen in either breast. IMPRESSION: NEGATIVE There is no mammographic evidence of malignancy. A 1 year screening mammogram is recommended. This exam was interpreted at Station ID: [id number]. NOTE: For mammograms, a report in lay terms will be sent to the patient. Approximately 15% of breast malignancies will not be visualized mammographically. In the management of a palpable breast mass, a negative mammogram must not discourage biopsy of a clinically suspicious lesion. Electronically Signed By: Jose Eduardo [email or web address]:11/09/2019 18:10:26 ACR BI-RADS Category 1: Negative 3341F PARENCHYMAL PATTERN: (A) - The breast(s) demonstrate(s) scattered fibroglandular densities. BI-RADS CATEGORY: (1) - 1 RECOMMENDATION: (ANNUAL) - Recommend routine annual screening mammography. [id number] 1 year screening LATERALITY: (B)
== END 2019-11-09 14:02 | disposition home or self-care (01) ==
LOC: DI 14:01
DX: Z12.31 Encounter for screening mammogram for malignant neoplasm of breast (principal)
CPT/HCPCS: 77063; 77067

== ENCOUNTER 2020-06-14 13:28 | Outpatient (CLI) | payer MEDICARE ==
--- NOTE | 2020-06-14 15:49 | XRAY Report ---
PROCEDURE: Foot 3 View BILAT INDICATIONS: ARTHRITIS R FOOT TECHNIQUE: 3 views of the foot were acquired. COMPARISON: None FINDINGS: Bones: No fractures or dislocations. No suspicious bony lesions. Right: There is prominent first through fifth TMT degenerative narrowing with sclerosis. In addition, first MTP degenerative narrowing with slight valgus deformity is noted. Old fifth metatarsal fractur e. No erosions. Left: Mild first MTP degenerative narrowing with slight valgus deformity. Mild midfoot no erosions. Soft tissues: No tibiotalar joint effusion. Achilles tendon appears normal. 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 Reviewed by: Yumiko Dan MD on 06/14/2020 3:47 PM PST Approved by: Yumiko Dan MD on 06/14/2020 3:47 PM [facility] Station ID: [id number]
== END 2020-06-14 13:29 | disposition home or self-care (01) ==
LOC: DI 13:28
PROVIDERS: ATTEND Family Medicine
DX: M19.071 Primary osteoarthritis, right ankle and foot (principal)

== ENCOUNTER 2020-10-23 15:52 | Outpatient (CLI) | payer MEDICARE ==
--- NOTE | 2020-10-23 16:34 | XRAY Report ---
PROCEDURE: Chest 2 View X-Ray INDICATIONS: COUGH,WHEEZING TECHNIQUE: 2 view(s) of the chest. COMPARISON: None. FINDINGS: Surgical changes and devices: None. Lungs and pleura: No pleural effusions or pneumothorax. Lungs are clear. Mediastinum: Mediastinal contours are normal. Heart size is normal. Bones and chest wall: No suspicious bony abnormalities. Soft tissues appear unremarkable. IMPRESSION: No acute cardiopulmonary pathology. Reviewed by: Radu Mensah MD on 10/23/2020 4:33 PM PDT Approved by: Radu Mensah MD on 10/23/2020 4:33 PM PDT Station ID: [id number]
== END 2020-10-23 15:53 | disposition home or self-care (01) ==
LOC: DI 15:52
PROVIDERS: ATTEND Physician Assistant
DX: R05 Cough (principal); R06.2 Wheezing

== ENCOUNTER 2020-11-02 13:17 | Outpatient (CLI) | payer MEDICARE ==
[2020-11-02] MEDS ORDERED: ALBUTEROL 1 PUFF INH STA (14:50)
== END 2020-11-02 13:18 | disposition home or self-care (01) ==
LOC: RT 13:17
PROVIDERS: ATTEND Physician Assistant
DX: J45.909 Unspecified asthma, uncomplicated (principal); R05 Cough
CPT/HCPCS: 94060; 94664

== ENCOUNTER 2021-10-21 13:02 | Outpatient (CLI) | payer MEDICARE ==
[2021-10-21 13:30] LABS: ALBUMIN/GLOBULIN RATIO 1.1 (1.0-2.2); BILIRUBIN,TOTAL 0.6 mg/dL (0.2-1.0); CALCIUM 9.6 mg/dL (8.5-10.3); CREATININE 0.8 mg/dL (0.4-1.0); POTASSIUM 4.1 mmol/L (3.5-5.0); TOTAL PROTEIN 7.6 g/dL (6.7-8.2)
[2021-10-21 13:39] LABS: ESTIMATED AVERAGE GLUCOSE 143 mg/dL (70-100); HEMOGLOBIN A1c% 6.6 % (4.27-6.07)
[2021-10-22 05:10] LABS: HCV AB 0.1 s/co ratio (0.0-0.9)
== END 2021-10-21 13:03 | disposition home or self-care (01) ==
LOC: LAB 13:02
PROVIDERS: ATTEND Physician Assistant
DX: Z00.00 Encounter for general adult medical examination without abnormal findings (principal); I10 Essential (primary) hypertension; Z11.59 Encounter for screening for other viral diseases; R73.01 Impaired fasting glucose; Z72.89 Other problems related to lifestyle
CPT/HCPCS: 36415; 80053; 83036; 86803

== ENCOUNTER 2022-10-23 08:00 | Outpatient (CLI) | payer MEDICARE | END 2022-10-23 23:59 | disposition home or self-care (01) | LOC: LAB.N 08:00 | PROVIDERS: ATTEND Specialist | DX: L03.90 Cellulitis, unspecified (principal) | CPT/HCPCS: 87070; 87077; 87181; 87205 ==

== ENCOUNTER 2022-10-26 14:48 | Outpatient (CLI) | payer MEDICARE ==
--- NOTE | 2022-10-26 16:57 | Ultrasound Report ---
PROCEDURE: Duplex Ext Veins Bilateral INDICATIONS: JOSEPH DUNCAN PA-C TECHNIQUE: Real-time imaging, as well as color and pulse Doppler interrogation, were performed of the deep veins of both legs from the inguinal ligament to the popliteal fossa. COMPARISON: None FINDINGS: The deep veins are normally compressible, and free of intraluminal thrombus. Color and pu lse Doppler demonstrate normal phasic intravascular flow. There is normal augmentation response to d istal compression maneuver. IMPRESSION: No DVT in the lower extremities bilaterally. Reviewed by: Sam Mcdonald on 10/26/2022 3:56 PM [facility] Approved by: Sam Mcdonald on 10/26/2022 3:56 PM [facility] Station ID: [id number]
--- NOTE | 2022-10-26 17:01 | Ultrasound Report ---
PROCEDURE: Ankle Brachial Index INDICATIONS: SWELLING AND DIMINISHED PULSE OF RIGHT LOWER EXTRE TECHNIQUE: Ankle-brachial indices were obtained bilaterally and recorded. COMPARISONS: None. FINDINGS: The patient was unable to tolerate brachial blood pressures so wrist blood pressures were performed. Right 174/91. Left 183/80 Right ankle brachial index (CHRISTOPHER): 0.84, ankle pressure: 189/109 Left ankle brachial index (CHRISTOPHER): 0.73, ankle pressure 165/94 Healing potential: Ankle pressures >55 mm Hg in non-diabetics and >80 mm Hg in diabetics are likely to achieve primary h ealing of ischemic foot ulcers. Toe pressures >30 mm Hg are likely to achieve primary healing of ischemic foot ulcers, toe or transme tatarsal amputations. IMPRESSION: Ankle pressures appear adequate. True brachial pressures could not be obtained as above. ABIs were ca lculated using the rest blood pressures. Reviewed by: Sam Mcdonald on 10/26/2022 4:00 PM [facility] Approved by: Sam Mcdonald on 10/26/2022 4:00 PM [facility] Station ID: [id number]
== END 2022-10-26 14:49 | disposition home or self-care (01) ==
LOC: DI 14:48
PROVIDERS: ATTEND Physician Assistant
DX: R60.0 Localized edema (principal); R09.89 Other specified symptoms and signs involving the circulatory and respiratory systems
CPT/HCPCS: 93922; 93970

== ENCOUNTER 2023-02-05 15:06 | Outpatient (CLI) | payer MEDICARE ==
--- NOTE | 2023-02-05 17:54 | DEXA Report ---
PROCEDURE: Dexa Spine and/or Hip INDICATIONS: POST MENOPAUSAL TECHNIQUE: Dual energy x-ray absorptiometry (DXA) was performed on a [employer] System. Regions measur ed are the AP Spine, femoral neck, and if needed forearm. COMPARISON: 06/24/2019 FINDINGS: Lumbar Spine: Bone Mineral Density 1.464 g/cm/cm,T score 2.4. Since the most recent prior study, there has been a statistically significant increase in bone mineral density by 7.5 percent. Left Femoral Neck: Bone Mineral Density 0.905 g/cm/cm, T score -1.0. Previous T score -1.3 Left Hip: Bone Mineral Density 1.021 g/cm/cm,T score 0.1. There has been no statistically significant change in bone mineral density since the prior study. (T score greater or equal to -1.0: NORMAL) (T score from -1.1 to -2.4: OSTEOPENIA) (T score less than or equal to -2.5 to: OSTEOPOROSIS) Impression: By WHO criteria, this patient has normal bone density. Interval statistical increase in bone mineral density of the lumbar spine. No statistical interval ch nan in bone mineral density of the hip. Patients with diagnosis of osteoporosis or osteopenia should have regular bone mineral density assess ment. For those eligible for Medicare, routine testing is allowed once every 2 years. Testing frequ ency can be increased for patients who have rapidly progressing disease or for those who are receivin g medical therapy to restore bone mass. Reviewed by: Chester Virgen MD on 02/05/2023 5:52 PM PDT Approved by: Chester Virgen MD on 02/05/2023 5:52 PM PDT Station ID: [id number]
== END 2023-02-05 15:07 | disposition home or self-care (01) ==
LOC: DI 15:06
PROVIDERS: ATTEND Physician Assistant
DX: N95.8 Other specified menopausal and perimenopausal disorders (principal)

== ENCOUNTER 2023-11-19 12:40 | Outpatient (CLI) | payer MEDICARE | END 2023-11-19 12:41 | disposition home or self-care (01) | LOC: NS 12:40 | PROVIDERS: ATTEND Internal Medicine | DX: Z71.3 Dietary counseling and surveillance (principal); E11.65 Type 2 diabetes mellitus with hyperglycemia; E66.01 Morbid (severe) obesity due to excess calories; I10 Essential (primary) hypertension; Z68.42 Body mass index [BMI] 45.0-49.9, adult | CPT/HCPCS: 97802 ==